=== PATIENT | female | born 1985 | race Caucasian/White ===

== ENCOUNTER 2018-03-15 15:28 | Outpatient (CLI) | payer MEDICAID | END 2018-03-15 16:58 | disposition home or self-care (01) | LOC: OBT 15:28 → L-D 15:29 → OBT 16:58 | DX: O26.843 Uterine size-date discrepancy, third trimester (principal); Z3A.37 37 weeks gestation of pregnancy | CPT/HCPCS: 76815; 76818 ==

== ENCOUNTER 2018-03-31 19:13 | Inpatient (IN) | payer MEDICAID ==
[2018-03-31] MEDS ORDERED: CARBOPROST 250 MCG INJ IM ×2 (20:00→22:00)
[2018-03-31] MEDS ORDERED: METHYLERGONOVINE 0.2 MG INJ IM ×2 (20:00→22:00)
[2018-03-31] MEDS ORDERED: OXYTOCIN 30 UNITS/LR 500 ML IV ×2 (20:00→22:00)
[2018-03-31] MEDS ORDERED: LIDOCAINE 1% (MPF) 30 ML INJ INJ (20:00)
[2018-03-31] MEDS ORDERED: MISOPROSTOL 200 MCG TAB PR ×2 (20:00→22:00)
[2018-03-31] MEDS ORDERED: LIDOCAINE 1% (MPF) 30 ML INJ (20:01)
[2018-03-31] MEDS: LACTATED RINGER'S 1,000 ML IV (20:15)
[2018-03-31] MEDS: OXYTOCIN 30 UNITS/LR 500 ML IV ×3 (20:26→21:34)
[2018-03-31] MEDS: LACTATED RINGER'S 1,000 ML IV* (21:34)
[2018-03-31] MEDS ORDERED: ONDANSETRON 4 MG INJ IV (22:00)
[2018-03-31] MEDS ORDERED: DIBUCAINE 1% 30 GM OINT TOP (22:00)
[2018-03-31] MEDS ORDERED: WITCH HAZEL/GLYCERIN PAD PR (22:00)
[2018-03-31] MEDS ORDERED: ACETAMINOPHEN 325 MG TAB PO ×2 (22:00)
[2018-03-31 22:50] LABS: ADD MAN DIFF? NO
[2018-03-31 22:52] LABS: ABNORMAL IP MESSAGE 1; BASOPHILS % 0.3 % (0.0-2.0); EOSINOPHILS # 0.1 10^3/ul (0.0-0.5); EOSINOPHILS % 0.8 % (0.0-7.0); HEMATOCRIT 35.5 % (37.0-47.0); HEMOGLOBIN 12.3 g/dl (12.0-16.0); LYMPHOCYTES # 1.6 10^3/ul (0.8-2.9); LYMPHOCYTES % 16.7 % (15.0-51.0); MEAN CORPUSCULAR HEMOGLOBIN 32.6 pg (29.0-33.0); MEAN CORPUSCULAR HGB CONC 34.6 g/dl (32.0-37.0); MEAN CORPUSCULAR VOLUME 94.2 fl (82.0-101.0); MEAN PLATELET VOLUME 13.3 fl (7.4-10.4); MONOCYTE # 0.8 10^3/ul (0.3-0.9); MONOCYTES % 8.6 % (0.0-11.0); NEUTROPHILS % 72.5 % (39.0-77.0); PLATELET COUNT 139 10^3/UL (140-415); RED BLOOD COUNT 3.77 10^6/ul (4.20-5.40); RED CELL DISTRIBUTION WIDTH 12.2 % (11.5-14.5)
[2018-03-31 22:52] LABS: WHITE BLOOD COUNT 9.6 10^3/ul (4.8-10.8)
[2018-03-31 22:53] LABS: POSITIVE DIFF @See below
[2018-03-31 23:10] LABS: INR 0.88; PT RATIO 0.9
[2018-03-31 23:11] LABS: PARTIAL THROMBOPLASTIN TIME 27.8 Sec (23.0-35.0)
[2018-04-01] MEDS: IBUPROFEN 600 MG TAB PO (03:05)
[2018-04-01] MEDS: LACTATED RINGER'S 1,000 ML IV (04:48)
[2018-04-01] MEDS: LACTATED RINGER'S 1,000 ML IV* (05:34)
[2018-04-01 07:27] LABS: ADD MAN DIFF? NO
[2018-04-01 07:42] LABS: BASOPHILS % 0.2 % (0.0-2.0); EOSINOPHILS # 0.1 10^3/ul (0.0-0.5); EOSINOPHILS % 0.6 % (0.0-7.0); HEMATOCRIT 32.4 % (37.0-47.0); HEMOGLOBIN 11.1 g/dl (12.0-16.0); LYMPHOCYTES # 1.4 10^3/ul (0.8-2.9); LYMPHOCYTES % 11.3 % (15.0-51.0); MEAN CORPUSCULAR HEMOGLOBIN 32.2 pg (29.0-33.0); MEAN CORPUSCULAR HGB CONC 34.3 g/dl (32.0-37.0); MEAN CORPUSCULAR VOLUME 93.9 fl (82.0-101.0); MEAN PLATELET VOLUME 12.7 fl (7.4-10.4); MONOCYTE # 1.1 10^3/ul (0.3-0.9); NEUTROPHIL # 9.6 10^3/ul (1.6-7.5); NEUTROPHILS % 78.2 % (39.0-77.0); PLATELET COUNT 129 10^3/UL (140-415); RED BLOOD COUNT 3.45 10^6/ul (4.20-5.40); RED CELL DISTRIBUTION WIDTH 12.2 % (11.5-14.5)
[2018-04-01 07:42] LABS: WHITE BLOOD COUNT 12.3 10^3/ul (4.8-10.8)
[2018-04-01 15:21] LABS: RAPID PLASMA REAGIN NONREACTIVE (NR)
[2018-04-01] MEDS: BENZOCAINE 20% 56 ML SPRAY TOP (18:22)
[2018-04-01] MEDS: LANOLIN 7 GM TUBE TOP (18:22)
[2018-04-02] MEDS: IBUPROFEN 600 MG TAB PO (00:08)
[2018-04-02] MEDS: MAGNESIUM HYDROXIDE 30ML CUP PO (09:31)
[2018-04-02] MEDS: SENNA/DOCUSATE NA (8.6MG/50MG) TAB PO (09:31)
== END 2018-04-02 19:01 | disposition home or self-care (01) | DRG 807 ==
LOC: OBT 19:13 → L-D 19:15 → OBT 19:38 → L-D 19:38 → PP1 22:40
PROVIDERS: Obstetrics & Gynecology
PROC: 10E0XZZ Delivery of Products of Conception, External Approach (ICD-10-PCS; principal; 2018-03-31)
DX: O80 Encounter for full-term uncomplicated delivery (principal); Z37.0 Single live birth; Z3A.39 39 weeks gestation of pregnancy; Z23 Encounter for immunization
CPT/HCPCS: 85025; 85610; 85730; 86592; 86850; 86900; 86901; 90686